=== PATIENT | female | born 1990 ===

== ENCOUNTER 2016-12-14 20:55 | Inpatient (IN) | payer BC, OTHER ==
[~2016-12-14] VITALS: Ht 175.3 cm; Wt 65.8 kg
[~2016-12-14 20:55] MED LIST: Baclofen PO; CHOL10002 PO; DICY20TA28 PO; Docusate Sodium PO; Gabapentin PO; HYDR-3895 PO; Ibuprofen PO
[2016-12-15] MEDS ORDERED: FLUT9.9S NS (01:30)
[2016-12-15 01:48] LABS: *URINE HCG, QUAL NEGATIVE (NEGATIVE)
[2016-12-15 01:50] VITALS: BP 121/85
[2016-12-15 01:50] LABS: *AMPHETAMINE, URINE POSITIVE (NEGATIVE); *BARBITURATE, URINE NEGATIVE (NEGATIVE); *CANNABINOID, URINE NEGATIVE (NEGATIVE); *COCCAINE, URINE NEGATIVE (NEGATIVE); *OPIATE, URINE POSITIVE (NEGATIVE); *PHENCYCLIDINE SCREEN,URINE NEGATIVE (NEGATIVE)
[2016-12-15] MEDS ORDERED: diphenhydrAMINE 50 MG CAPSULE PO PRN (02:00)
[2016-12-15] MEDS ORDERED: MIRALAX 17 GM POWD.PACK PO PRN (02:00)
[2016-12-15] MEDS ORDERED: DICYCLOMINE HCL 20 MG TABLET PO PRN (02:00)
[2016-12-15] MEDS ORDERED: MAGNESIUM HYDROXIDE 30 ML LIQUID UDC PO PRN (02:00)
[2016-12-15] MEDS ORDERED: ONDANSETRON 4 MG/2 ML VIAL IM PRN (02:00)
[2016-12-15] MEDS ORDERED: LOPERAMIDE HCL 2 MG CAPSULE PO PRN ×2 (02:00)
[2016-12-15] MEDS ORDERED: ONDANSETRON ODT 4 MG TAB.RAPDIS SL PRN (02:00)
[2016-12-15] MEDS ORDERED: MAG HYDROX/AL HYDROX/SIMETH 30 ML LIQUID UDC PO PRN (02:00)
[2016-12-15] MEDS ORDERED: BUPRENORPHINE HCL 2 MG TAB.SUBL SL PRN (02:00)
[2016-12-15] MEDS ORDERED: CLONIDINE HCL 0.1 MG TABLET PO PRN (02:00)
[2016-12-15] MEDS ORDERED: ACETAMINOPHEN 325 MG TABLET PO PRN (02:00)
[2016-12-15] MEDS: IBUPROFEN 400 MG TABLET PO PRN ×3 (02:04→21:52)
--- NOTE | 2016-12-15 02:05 | NUR ---
PRN Motrin administration Pt c/o headache upon admission. PRN Motrin administered
[2016-12-15] MEDS ORDERED: IBUPROFEN 400 MG TABLET ONE (02:11)
[2016-12-15] MEDS ORDERED: IBUP-23 PO (02:37)
[2016-12-15] MEDS ORDERED: [UNRECOGNIZED DRUG - CODE] PO (03:01)
--- NOTE | 2016-12-15 03:05 | NUR ---
PRN Motrin reassessment PRN Motrin effective. Pt reports relief of headache.
--- NOTE | 2016-12-15 03:30 | NUR ---
ADMISSION Pt is a 26 yo female [facility] on [facility]16. She is A&O x4 and ambulatory. Body check performed by HIDE AND SKIN PROCESSING WORKER and skin check performed by nurse. Allergic to sulfa, full code status, and on a regular diet. She does not appear intoxicated. She answers all questions appropriately but occasionally falls asleep between questions toward the end of assessment. Vitals signs are B/P 121/85, HR 82, RR 16, O2 sat 99%, T 97.7. She reports having a headache. She is 5'9" and weighs 145lb. Pt has a PMH of MRSA of a pimple on the chin in 2014, seizure in 2010 and 2012, scoliosis, eating disorder in high school, cosmetic surgery, anxiety, and depression. Lungs sounds clear, PERRLA, brisk capillary refill, abdomen soft and non-distended, bowel sounds present. She has track wilder on the front of her neck and a raised area on the inner right ankle which appears to be an insect bite. She has wilder on bilateral thighs from picking her skin while using drugs. Pt reports she may have recently had athletes foot. History of Use 1) Heroin IV 0.5 grams per day for the past 3 months. Last used 0.5 grams on 12/14/16 at 2100. She has used heroin for 11 years. 2) Methamphetamine IV 0.5 grams per day for the past 3 months. Last used 0.5 grams on 12/14/16 at 2100. She has used methamphetamine for 9 years. 3) GHB "1 dose" 2x/month. Last used 12/14/16. She has used GHB for 4 years. Treatment History [facility] 08/2016 for 2 months. [facility] 07/2016 Pt smokes 10 cigarettes per day. She came to treatment today because "I need to stop using heroin and meth". Symptoms when she doesn't use include "anxiety, stomach ache, chills, achy". COWS on admission is 1. UDS positive for opiates and methamphetamine. She does not have a primary care physician at home. Pt was oriented to the unit. She was educated regarding use of the call light and all questions answered. Fall and seizure precautions in place. Bed is down with call light in reach.
[2016-12-15 04:00] VITALS: BP 118/68
--- NOTE | 2016-12-15 07:16 | NUR ---
END OF SHIFT Report provided to day shift nurse. Pt is lying in bed resting. She is a 26 yo female admitted to [facility] early today for opiate dependence with a h/o using methamphetamine and GHB. Allergies to sulfa, full code, regular diet. Pt is A&O x4 and ambulatory. Last COWS was 1. She drank 295mL and slept for 4 hours. Addendum: 12/15/16 at 0716 by CALVIN WALSH RN PRN Motrin administered
[2016-12-15 07:49] LABS: BASOPHILS # (AUTO) 0.1 K/uL (0.0-8.0); EOSINOPHILS # (AUTO) 0.3 K/uL (0.0-0.7); EOSINOPHILS % (AUTO) 3.8 % (0.0-7.0); HEMATOCRIT 37.4 % (31.2-41.9); HEMOGLOBIN 12.3 g/dL (10.9-14.3); LYMPHOCYTES % (AUTO) 41.6 % (20.5-51.5); MEAN CORPUSCULAR HEMOGLOBIN 26.7 uug (24.7-32.8); MEAN CORPUSCULAR HGB CONC 33 g/dL (32.3-35.6); MEAN CORPUSCULAR VOLUME 80.9 fL (75.5-95.3); MONOCYTES # (AUTO) 0.6 K/uL (2.0-10.0); NEUTROPHILS # (AUTO) 3.1 K/uL (1.8-8.9); NEUTROPHILS % (AUTO) 45.6 % (38.5-71.5); PLATELET COUNT (AUTO) 227 K/uL (179-408); RED BLOOD CELL COUNT(AUTO) 4.62 MIL/uL (3.63-4.92); RED CELL DISTRIBUTION WIDTH 12.3 % (12.3-17.7); WHITE BLOOD COUNT (AUTO) 7.1 K/uL (3.8-11.8)
[2016-12-15 07:57] LABS: ETHANOL < 3 MG/DL (0-0)
[2016-12-15 07:59] LABS: ALANINE AMINOTRANSFERASE 19 U/L (14-59); ALBUMIN 3.1 g/dL (3.4-5.0); ALKALINE PHOSPHATASE 50 U/L (50-136); AMYLASE 29 U/L (25-115); ASPARTATE AMINOTRANSFERASE 19 U/L (15-37); BILIRUBIN,TOTAL 0.2 mg/dL (0.2-1.0); CALCIUM 8.6 mg/dL (8.5-10.1); CARBON DIOXIDE 32 mmol/L (21-32); CHLORIDE 102 mmol/L (98-107); CREATININE 0.9 mg/dL (0.6-1.3); GFR 75 mL/min (>60); GLUCOSE 86 mg/dL (74-106); LIPASE 193 U/L (73-393); POTASSIUM 4.5 mmol/L (3.5-5.1); SODIUM SERUM 137 mmol/L (136-145); TOTAL PROTEIN, SERUM 6.6 g/dL (6.4-8.2); UREA NITROGEN, BLOOD 16 mg/dL (7-18)
[2016-12-15 08:00] VITALS: BP 102/69
[2016-12-15 08:10] LABS: THYROID STIMULATING HORMONE 0.777 mIU/mL (0.358-3.740)
--- NOTE | 2016-12-15 08:15 | NUR ---
START OF SHIFT: RECEIVED PT LAYING IN BED ASLEEP. RESPIRATIONS EVEN AND UNLABORED. SHE IS EASILY AROUSED AND ASKED IF I COULD LET HER SLEEP. SHE REFUSED ASSESSMENT AND MORNING MEDS.COWS DEFERRED. BED LOCKED AND LOW. CALL BOLDEN IN REACH. WILL CONTINUE TO PROVIDE SAFE AND SUPPORTIVE ENVIRONMENT.
[2016-12-15 08:21] LABS: HIV-1 p24 ANTIGEN NON REACTIVE (NONREACTIVE); HIV-1/2 ANTIBODY NON REACTIVE (NONREACTIVE)
[2016-12-15] MEDS: MULTIVITAMINS,THERAPEUTIC TABLET PO SCH (09:00)
[2016-12-15 13:00] VITALS: BP 105/65
[2016-12-15] MEDS: METHOCARBAMOL 750 MG TABLET PO PRN ×2 (14:11→23:19)
[2016-12-15] MEDS: GABAPENTIN 300 MG CAPSULE PO SCH ×2 (14:12→21:52)
[2016-12-15] MEDS: HYDROXYZINE PAMOATE 25 MG CAPSULE PO PRN ×2 (14:12→21:52)
--- NOTE | 2016-12-15 14:16 | NUR ---
PT IS AWAKE AND C/O BODY ACHES,ANXIETY,RESTLESSNESS AND FATIGUE. PRN VISTARIL AND ROBAXIN GIVEN WITH SCHEDULED NEURONTIN. WILL MONITOR EFFECTIVENESS OF PRN MED.
--- NOTE | 2016-12-15 14:52 | NUR ---
PT STATES SHE FEELS LESS ANXIOUS AND HER BODY ACHES HAVE LESSENED. PRNS EFFECTIVE.
[2016-12-15 16:00] VITALS: BP 103/60
[2016-12-15] MEDS ORDERED: LORAZEPAM 2 MG/1 ML VIAL IM PRN (16:45)
--- NOTE | 2016-12-15 19:09 | NUR ---
324 END OF SHIFT: PT SPENT MOST OF SHIFT ASLEEP. AM MEDS HELD AND COWS DEFERRED. SHE AWOKE THIS AFTERNOON C/O ANXIETY AND BODY ACHES. PRN VISTARIL AND ROBAXIN GIVEN WITH 1300 SCHEDULED MEDS. SHE STATES THE PRNS WERE EFFECTIVE AND SHE FELT BETTER. PT CONTINUES TO SLEEP ON AND OFF DURING SHIFT. LAST COWS 6. PRN SUBUTEX AVAILABLE FOR COWS SCORE OF 12 OR MORE. ENCOURAGED INCREASED FLUIDS. SHE IS SNACKING ON SUGARY SNACKS. EDUCATED PT ON PROPER NUTRITION. PT EXPRESSED VERBAL UNDERSTANDING OF EDUCATION. WILL PASS SHIFT REPORT TO ONCOMING NURSE.BED LOCKED AND LOW. CALL BOLDEN IN REACH.
[2016-12-15 20:00] VITALS: BP 112/71
--- NOTE | 2016-12-15 20:00 | NUR ---
START OF SHIFT NOTE PATIENT IN BED. UPON GREETING PATIENT REPORTS ANXIETY, GENERALIZED BODY ACHES 6/10, SWEATING, STUFFY NOSE, NO N/V, SLIGHT ABDOMINAL CRAMPING. PATIENT ALERT AND ORIENTED X 3. RESPIRATION EVEN AND UNLABORED. RECEIVED REPORT FROM DAY SHIFT NURSE. PATIENT WAS GIVEN ROBAXIN AND VISTARIL DURING THE DAY. LAST COWS 6. PATIENT IN BED MOST OF THE DAY. PATIENT IS A 26 YEAR OLD FEMALE, ADMITTED FOR OPIATE DEPENDENCE. PATIENT IS NOT ON TAPER, PRN SUBUTEX AVAILABLE. PATIENT IS FULL CODE, REGULAR DIET AND ALLERGIC TO SULFA. ON FALL/SEIZURE PRECAUTION. PATIENT WITH RIGHT ANKLE INSECT BITE, TRACK FERNANDES ON NECK AND BILATERAL THIGH PICK FERNANDES. MRSA SWAB SENT TO LAB, WAITING FOR THE RESULT. SAFETY MEASURES IN PLACE. CALL LIGHT IN REACH. WILL CONTINUE TO MONITOR.
--- NOTE | 2016-12-15 21:52 | NUR ---
PRN BENADRYL/MOTRIN/VISTARIL PATIENT C/O ANXIETY, UNABLE TO SLEEP AND GENERALIZED BOY PAIN 02/07. PRN MOTRIN, BENADRYL AND VISTARIL. WILL MONITOR FOR EFFECTIVENESS
--- NOTE | 2016-12-15 22:52 | NUR ---
PRN VISTARIL/MOTRIN PATIENT STATE STILL ANXIOUS . PAIN DECREASED 2/10. RELAXATION TECHNIQUE PROVIDED. PATIENT STATES SHE WILL TRY TO GO TO SLEEP. WILL CONTINUE TO MONITOR
[2016-12-15] MEDS: BUPRENORPHINE HCL 2 MG TAB.SUBL SL PRN (23:19)
--- NOTE | 2016-12-15 23:19 | NUR ---
PRN ROBAXIN AND SUBUTEX ADMINISTRATION PATIENT REPORTS INCREASE ANXIETY, IRRITABILITY, SWEATING, GOOSE BUMPS, STUFFY NOSE, INABILITY TO STAY ASLEEP. CIWA 12. PRN ROBAXIN AND SUBUTEX GIVEN. WILL MONITOR FOR EFFECTIVENESS
--- NOTE | 2016-12-15 23:49 | NUR ---
PRN LENORAUTEX RE-ASSESSMENT PATIENT IN BED , SHE STATES HER ANXIETY SUBSIDED, SHE'S RELAXED NOW., MEDICATION IS WORKING AND WILL SOON GO TO SLEEP. CIWA 5. WILL CONTINUE TO MONITOR
[2016-12-16] VITALS: BP 119/72
--- NOTE | 2016-12-16 | NUR ---
PRN BENADRYL RE-ASSESSMENT PATIENT IN BED WITH EYES CLOSED. RESPIRATION EVEN AND UNLABORED. SAFETY MEASURES IN PLACE. CALL LIGHT IN REACH. WILL CONTINUE TO MONITOR.
--- NOTE | 2016-12-16 00:19 | NUR ---
NANETTE MURGUIA RE-ASSESSMENT PATIENT BED WITH EYES CLOSED. NO S/S OF DISTRESS. RESPIRATION EVEN AND UNLABORED. SAFETY MEASURES IN PLACE. CALL LIGHT IN REACH. WILL CONTINUE TO MONITOR
[2016-12-16 04:00] VITALS: BP 125/71
--- NOTE | 2016-12-16 07:15 | NUR ---
END OF SHIFT NOTE PATIENT REPORTS ANXIETY, GENERALIZED BODY ACHES 6/10, SWEATING, STUFFY NOSE, NO N/V, SLIGHT ABDOMINAL CRAMPING DURING SHIFT. PATIENT ALERT AND ORIENTED X 3. RESPIRATION EVEN AND UNLABORED. PATIENT WAS GIVEN BENADRYL, VISTARIL AND MOTRIN. PATIENT WAS GIVEN PRN SUBUTEX FOR COWS 12 AND ROBAXIN AT 2319 , VISTARIL INEFFECTIVE. COWS DOWN TO 5 AFTER SUBUTEX. PATIENT PARTICIPATED N ACTIVITIES. ENCOURAGE TO ATTEND GROUPS. PATIENT COMPLAINT WITH MEDICATIONS. SAFETY MEASURES IN PLACE. CALL LIGHT IN REACH. WILL CONTINUE TO MONITOR. SLEPT 7 HOURS. FLUID INTAKE 532 ML. VOIDED X 1. BM X 1.LAST COWS 3.
--- NOTE | 2016-12-16 07:23 | NUR ---
Start of Shift Notes: Received patient in the room. Alert and oriented x 4. Verbally responsive. Able to make her needs known. Respirations even and unlabored. No SOB noted. Skin warm and dry to touch. Abdomen soft and non-distended with (+) BS in all 4 quadrants. No complains of N/V/D or constipation noted. No complains of abdominal discomfort. Voids independently. Denies any complains of bladder pain. Ambulatory ad chanel with steady gait. Patient is a 26 year old female who was admitted on 12/14/2016 for opiate/methamphetamine and GHB dependence who was placed on PRN Subutex only at this time. Has past medical hx of MRSA on the chin, seizures, scoliosis, anxiety and depression. Allergic to SULFA. Full code. Regular diet. On fall and seizure precautions. Educated patient on her current plan of care for the day and her medication regimen. Encouraged oral fluid intake and encouraged group participation to learn new skills to prevent relapse. Will continue to monitor closely. Safety precautions in place.
[2016-12-16 08:00] VITALS: BP 127/76
[2016-12-16] MEDS ORDERED: TUBERCULIN,PURIF.PROT.DERIV. 5 TU/0.1 ML TEST ID ONE (09:00)
[2016-12-16] MEDS: GABAPENTIN 300 MG CAPSULE PO SCH ×3 (09:05→21:31)
[2016-12-16] MEDS: MULTIVITAMINS,THERAPEUTIC TABLET PO SCH (09:05)
[2016-12-16] MEDS: CHOLECALCIFEROL 1,000 UNIT TABLET PO SCH (09:05)
[2016-12-16] MEDS: HYDROXYZINE PAMOATE 25 MG CAPSULE PO PRN (09:06)
[2016-12-16] MEDS: BUPRENORPHINE HCL 2 MG TAB.SUBL SL PRN (09:06)
--- NOTE | 2016-12-16 09:06 | NUR ---
Subutex 4 mg SL/Clonidine 0.1mg/Vistaril 50 mg PO given: Patient's COWS 12 - presented with multiple yawning episodes, increased anxiety, chills, hot flashes, runny nose, agitation, restless legs, and bone/joint aches. Medicated patient with Subutex 4 mg SL, Clonidine 0.1mg PO and Vistaril 50 mg PO as ordered. Will monitor for effectiveness.
[2016-12-16] MEDS: METHOCARBAMOL 750 MG TABLET PO PRN (09:12)
--- NOTE | 2016-12-16 09:12 | NUR ---
Robaxin 750 mg PO given: Patient complained of 5/10 muscle aches and joint pain related to withdrawal symptoms. Medicated patient with Robaxin 750 mg PO as ordered after non-pharmacological interventions were ineffective.
--- NOTE | 2016-12-16 09:36 | NUR ---
Subutex 4 mg SL: Re-assessment COWS 4. PRN Subutex was effective in reducing patient's withdrawal symptoms, muscle aches, anxiety and chills.
--- NOTE | 2016-12-16 09:44 | NUR ---
TB test not administered: Patient refused TB test at this time despite explanation of benefits. aware. CXR ordered.
--- NOTE | 2016-12-16 10:06 | NUR ---
Re-assessment: Clonidine/Vistaril Per patient, Clonidine and Vistaril were effective in reducing anxiety, agitation, chills and hot flashes. COWS 4.
--- NOTE | 2016-12-16 10:12 | NUR ---
Re-assessment: Robaxin Per patient, PRN Robaxin was effective in reducing muscle aches and pains. PL 2.
[2016-12-16 12:00] VITALS: BP 125/74
[2016-12-16 12:14] LABS: HCV AB <0.1 s/co ratio (0.0-0.9); HEPATITIS B CORE AB, IgM Negative (Negative); HEPATITIS B SURFACE AG Negative (Negative)
[2016-12-16] MEDS: DOCUSATE SODIUM 250 MG CAPSULE PO SCH (12:20)
[2016-12-16] MEDS: DICYCLOMINE HCL 20 MG TABLET PO SCH ×2 (14:42→21:31)
[2016-12-16] MEDS: BUPRENORPHINE HCL 2 MG TAB.SUBL SL SCH ×2 (14:43→21:34)
[2016-12-16] MEDS: BACLOFEN 20 MG TABLET PO SCH ×2 (14:43→21:31)
[2016-12-16] MEDS: CLONIDINE HCL 0.1 MG TABLET PO SCH ×2 (14:43→21:31)
[2016-12-16 16:00] VITALS: BP 98/63
--- NOTE | 2016-12-16 19:09 | NUR ---
End of Shift Notes: Patient is a 26 year old female admitted for opiate dependence who was placed on PRN Subutex at this time. Prior to admission, patient was using 0.5grams of Heroin IV, 0.5 grams of Meth IV and GHB. VS monitored closely. No significant abnormalities noted. Withdrawal symptoms were closely monitored q 4 hours. Initial COWS 12, - presented with chills, hot flashes, anxiety, agitation, yawning, restless legs, and muscle aches and pains. Medicated patient with Clonidine, Vistaril, Subutex, Robaxin at 0912 with help. Last COWS 3. Unable to participate in group and therapy sessions despite encouragement. Requires reassurance and redirection for most of the shift. Oral fluids encouraged as tolerated. All needs met and attended. On fall and seizure precautions. Safety precautions in place. Will continue to monitor closely.
[2016-12-16 20:00] VITALS: BP 121/80
--- NOTE | 2016-12-16 20:00 | NUR ---
START OF SHIFT NOTE PATIENT ALERT AND ORIENTED X 4. RESPIRATION EVEN AND UNLABORED. PATIENT REPORTS ANXIETY, RUNNY NOSE, SWEATING, STOMACH CRAMPS , MILD JOINT ACHES. NO N/V. RECEIVED REPORT FROM DAY SHIFT NURSE. PATIENT WAS GIVEN PRN SUBUTEX , CLONIDINE, VISTARIL , ROBAXIN AND COLACE. PATIENT WAS SEEN BY DR. BROWN DURING THE DAY AND STARTED HER ON MODIFIED 2 DAY SUBUTEX TAPER. PATIENT IS FULL CODE, REGULAR DIET AND ALLERGIC TO SULFA. ON FALL/SEIZURE PRECAUTION. PATIENT WITH RIGHT ANKLE INSECT BITE, TRACK FERNANDES ON NECK AND BILATERAL THIGH PICK FERNANDES. ON FALL/SEIZURE PRECAUTION. SAFETY MEASURES IN PLACE. CALL LIGHT IN REACH. WILL CONTINUE TO MONITOR
--- NOTE | 2016-12-16 21:34 | NUR ---
PRN MOM ADMINISTRATION PATIENT C/O UNABLE TO PASS OLAYINKA. PATIENT WAS GIVEN MOM. ENCOURAGE FLUIDS. WILL MONITOR FOR EFFECTIVENESS.
[2016-12-17] VITALS: BP 107/59
[2016-12-17 04:00] VITALS: BP 100/62
--- NOTE | 2016-12-17 07:33 | NUR ---
END OF SHIFT NOTE PATIENT ALERT AND ORIENTED X 4. RESPIRATION EVEN AND UNLABORED. PATIENT REPORTS ANXIETY, RUNNY NOSE, SWEATING, STOMACH CRAMPS , MILD JOINT ACHES. NO N/V. PATIENT WAS SEEN BY DR. BROWN DURING THE DAY AND STARTED HER ON MODIFIED 2 DAY SUBUTEX TAPER. PATIENT WAS GIVEN PRN MOM DURING SHIFT, INEFFECTIVE. ENCOURAGE FLUIDS. PATIENT WITH RIGHT ANKLE INSECT BITE, TRACK FERNANDES ON NECK AND BILATERAL THIGH PICK FERNANDES. ON FALL/SEIZURE PRECAUTION. SAFETY MEASURES IN PLACE. CALL LIGHT IN REACH. WILL CONTINUE TO MONITOR. PATIENT SLEPT 6 HOURS. FLUID INTAKE 828 ML. VOIDED X 2. NO BM. LAST COWS 1.
--- NOTE | 2016-12-17 07:35 | NUR ---
Start of Shift Report from night nurse: Pt is a 26 y/o female here for Opiate dependence r/t Heroin 0.5g/d IV, Methamphetamine 0.5g/d IV and GHB 1 dose 2 times per month; Modified 2 day Subutex taper ordered. Pt is a full code, regular diet, allergic to sulfa, fall and seizure precautions ordered. HHx: MRSA on chin in 2014, Seizure in 2010 and 2012, eating d/o, anxiety and depression, multiple relapses. V/S stable. Skin is not intact with tracks on neck, scars from picking on skin on thighs and insect bite on right ankle. Night nurse recommended to f/u with pt's c/o constipations; PRN MOM given last night with scheduled Gi regimen. No new orders endorsed to me. Last COWS 1. Pt is asleep in room. Will cont. to monitor the pt.
[2016-12-17 08:00] VITALS: BP 99/63
[2016-12-17] MEDS: DOCUSATE SODIUM 250 MG CAPSULE PO SCH (09:00)
[2016-12-17] MEDS: CHOLECALCIFEROL 1,000 UNIT TABLET PO SCH (09:00)
[2016-12-17] MEDS ORDERED: BUPRENORPHINE HCL 2 MG TAB.SUBL SL SCH (09:00)
[2016-12-17] MEDS: GABAPENTIN 300 MG CAPSULE PO SCH ×2 (09:00→17:25)
[2016-12-17] MEDS: DICYCLOMINE HCL 20 MG TABLET PO SCH ×2 (09:00→17:25)
[2016-12-17] MEDS: CLONIDINE HCL 0.1 MG TABLET PO SCH ×2 (09:00→17:29)
[2016-12-17] MEDS: BACLOFEN 20 MG TABLET PO SCH ×2 (09:00→17:25)
[2016-12-17] MEDS: MULTIVITAMINS,THERAPEUTIC TABLET PO SCH (09:00)
--- NOTE | 2016-12-17 10:00 | NUR ---
Medication Non-Administration Pt is in bed asleep since 0800am so HELD 0900 medications of Subutex 2mg SL last dose, Gabapentin 600mg, Bentyl 20mg, Clonidine 0.1mg, Vit D 2000 Units, Colace 250mg, MV, Thiamine & Folic Acid; I notified Dr. Stephenson and he is aware with no new orders noted. Will cont. to monitor the pt.
[2016-12-17 12:00] VITALS: BP 106/63
[2016-12-17 16:00] VITALS: BP 120/74
[2016-12-17 17:29] VITALS: BP 120/74
--- NOTE | 2016-12-17 18:15 | NUR ---
New Orders New Orders for Dulcolax 10mg PO PRN daily and 10mg Supp PRN daily.
[2016-12-17] MEDS ORDERED: BISACODYL 10 MG SUPP.RECT RC PRN (18:30)
[2016-12-17] MEDS ORDERED: BISACODYL 5 MG TABLET.DR PO PRN (18:30)
--- NOTE | 2016-12-17 18:45 | NUR ---
End of the Shift Report to t night nurse: Pt is a 26 y/o female here for Opiate dependence r/t Heroin 0.5g/d IV, Methamphetamine 0.5g/d IV and GHB 1 dose 2 times per month; Modified 2 day Subutex taper with last dose ordered at 09am missed with all scheduled meds missed at that time with Dr. Stephenson notified that after x3 attempts to give ordered meds pt remained asleep until lunch; no new orders from MD. Pt is a full code, regular diet, allergic to sulfa, fall and seizure precautions ordered. HHx: MRSA on chin in 2014, Seizure in 2010 and 2012, eating d/o, anxiety and depression, multiple relapses. Skin is not intact with tracks on neck, scars from picking on skin on thighs and insect bite on right ankle. Pt denies chest pain and no SOB noted. V/S stable yet HR 105 with irritability. No hallucinations, delusions or suicidal ideations noted. Pt did not attend group activities or therapy during my shift and remained to self in room very depressed and states that she wants her parents removed from consent so notified caser. New orders for Dulcolax tab 10mg PRN daily and Dulcolax supp 10mg PRN daily. PT THREATENS TO GO AMA; DR. STEPHENSON notified and will reassess the pt. Last COWS 5
--- NOTE | 2016-12-17 19:15 | NUR ---
Start of Shift Note: Report received from day shift nurse. Pt is a 26 yo female admitted on 12/14/16 for medically-supervised withdrawal from opiates. Pt reports using 0.5gm IV heroin daily for 3 months; pt also reports using 0.5gm IV methamphetamine daily for 3 months. Pt was on modified 2-day Subutex taper, with last dose at 09:00 held for sleep. Last day shift COWS=5. Pt reports allergy to sulfa. Pt is on a regular diet. Pt reports med hx: MRSA hx, seizure, scoliosis, eating DO, cosmetic surgery, anxiety, and depression. Day shift nurse reports pt became agitated after phone call to parents and then decided she wanted to leave AMA. Pt is currently speaking with Dr Stephenson and client administrator. Will continue to monitor.
--- NOTE | 2016-12-17 19:26 | NUR ---
AMA Note: Pt states that she wants to leave AMA d/t wanting "to go use". Pt educated about the risks and consequences of leaving AMA; pt verbalized understanding but still requested to leave. Multiple staff members spoke to pt without any success. VS WNL, pt denies suicidal/homicidal ideations, Dr Stephenson is aware. Pt was given a list of community resources in case she is in need of help. All belongings returned to pt. Pt left the facility on 12/17/2016 at 19:26.
== END 2016-12-17 19:26 | disposition left against medical advice (07) | DRG 894 ==
LOC: SRC 23:55
PROVIDERS: ADMIT Internal Medicine; ATTEND Internal Medicine
PROC: HZ2ZZZZ Detoxification Services for Substance Abuse Treatment (ICD-10-PCS; principal; 2016-12-14)
PROC: HZ31ZZZ Individual Counseling for Substance Abuse Treatment, Behavioral (ICD-10-PCS; 2016-12-15)
DX: F11.23 Opioid dependence with withdrawal (principal); E55.9 Vitamin D deficiency, unspecified; Z59.1 Inadequate housing; F41.1 Generalized anxiety disorder; F17.210 Nicotine dependence, cigarettes, uncomplicated; F32.9 Major depressive disorder, single episode, unspecified; F15.23 Other stimulant dependence with withdrawal; Z83.3 Family history of diabetes mellitus; Z86.59 Personal history of other mental and behavioral disorders; F14.90 Cocaine use, unspecified, uncomplicated; K59.09 Other constipation
CPT/HCPCS: 36415; 71010; 80307; 80324; 80361; 83690; 83735; 84443; 84703; 85025; 86580; 86592; 86705; 86803; 87340; 87806; A4663; G6040-TC; Q0163

== ENCOUNTER 2017-02-26 00:24 | Inpatient (IN) | payer BC, OTHER ==
[~2017-02-26] VITALS: Ht 175.3 cm; Wt 61.2 kg
[~2017-02-26 00:24] MED LIST changes: -Baclofen PO; +IBUP-23 PO
--- NOTE | 2017-02-26 01:00 | NUR ---
Pre-Admission Assessment Pt seen in intake office. Pt noted to be moderately intoxicated but in stable condition. Policies on medication disposal explained to and understood by patient. V/S WNL. Pt is A+Ox3 and cooperative. Will admit to unit.
--- NOTE | 2017-02-26 01:30 | NUR ---
ADMISSION NOTE : Pt is a 26 yo female who arrived [facility] the [facility] at 01:10 on 02/26/17. She is A&O x4 and ambulatory. Body check performed by MOLECULAR SPECTROSCOPIST and skin check performed by RACHEL Valenzuela . Allergic to sulfa, full code status, and on a regular diet. She does not have a primary care physician at home.She does appear very intoxicated. She answers all questions slowly but occasionally falls asleep between questions toward the end of assessment. She came to treatment today because "I need to stop using heroin and meth". Symptoms when she doesn't use include "anxiety, stomach ache, chills, achy". Pt has a PMH of MRSA of a pimple on the chin in 2014, seizure in 2010 and 2012, scoliosis, eating disorder in high school, cosmetic surgery, anxiety, and depression. Upon Admission Vital signs are B/P=108/70, DO=236, RR 16, O2 sat 98%, T 97.7. COWS=5 . She reports having a headache. She is 5'9" and weighs 135lb. Lungs sounds clear, PERRLA, brisk capillary refill, abdomen soft and non-distended, bowel sounds present. She has track wilder on the front of her neck and a raised area on the inner right ankle which appears to be an insect bite. She has wilder on bilateral thighs from picking her skin while using drugs. Last BM was on 02/25/2017. Pt was oriented to the unit. She was educated regarding use of the call light and all questions answered. Pt. was able to provide UDS , sample sent to the lab. Safety measures in place : bed on lowest position with side rails x2 up for safety, call light within reach. Will continue to monitor closely and offer help. History of Use 1) Heroin IV 0.5 grams per day for the past 5 months. Last used 0.5 grams on 02/25/17 at 1400. She has used heroin for 11 years. 2) Methamphetamine IV 0.5 grams per day for the past 5 months. Last used 0.5 grams on 02/25/17 at 1400. She has used methamphetamine for 9 years. PAST MEDICAL HISTORY : Scoliosis, eating disorder in high school, cosmetic surgery, anxiety and depression. Tx HISTORY : X8 DETOXs. X8 REHABs. [facility] 08/2016 for 2 months. [facility] 07/2016 , 11/2016 FAMILY HISTORY : Mother diagnosed with depression, father diagnosed with HTN, elev. Chol ., LB pain., sister is in good health.
[2017-02-26 02:11] LABS: *URINE HCG, QUAL NEGATIVE (NEGATIVE)
[2017-02-26 02:17] LABS: *AMPHETAMINE, URINE POSITIVE (NEGATIVE); *BARBITURATE, URINE NEGATIVE (NEGATIVE); *CANNABINOID, URINE NEGATIVE (NEGATIVE); *COCCAINE, URINE POSITIVE (NEGATIVE); *OPIATE, URINE POSITIVE (NEGATIVE); *PHENCYCLIDINE SCREEN,URINE NEGATIVE (NEGATIVE)
[2017-02-26] MEDS ORDERED: LOPERAMIDE HCL 2 MG CAPSULE PO PRN ×2 (02:30)
[2017-02-26] MEDS ORDERED: ONDANSETRON ODT 4 MG TAB.RAPDIS SL PRN (02:30)
[2017-02-26] MEDS ORDERED: DICYCLOMINE HCL 20 MG TABLET PO PRN (02:30)
[2017-02-26] MEDS ORDERED: MIRALAX 17 GM POWD.PACK PO PRN (02:30)
[2017-02-26] MEDS ORDERED: HYDROXYZINE PAMOATE 25 MG CAPSULE PO PRN ×2 (02:30→14:45)
[2017-02-26] MEDS ORDERED: BUPRENORPHINE HCL 2 MG TAB.SUBL SL PRN (02:30)
[2017-02-26] MEDS ORDERED: MAGNESIUM HYDROXIDE 30 ML LIQUID UDC PO PRN (02:30)
[2017-02-26] MEDS ORDERED: IBUPROFEN 400 MG TABLET PO PRN (02:30)
[2017-02-26] MEDS ORDERED: ONDANSETRON 4 MG/2 ML VIAL IM PRN (02:30)
[2017-02-26] MEDS ORDERED: MAG HYDROX/AL HYDROX/SIMETH 30 ML LIQUID UDC PO PRN (02:30)
[2017-02-26 04:00] VITALS: BP 104/66
--- NOTE | 2017-02-26 06:28 | NUR ---
PRN SUBUTEX Pt. complains of flashes, body ache, muscle spasm, GE=331, COWS=12. PRN Subutex 4mg given as ordered. Safety measures in place : bed on lowest position with side rails x2 up for safety, call light within reach. Will continue to monitor closely and offer help
[2017-02-26] MEDS ORDERED: BUPRENORPHINE HCL 2 MG TAB.SUBL SL ONE (06:38)
--- NOTE | 2017-02-26 06:48 | NUR ---
END SHIFT NOTE : Pt is a 26 yo female who arrived on the [facility] at 01:10 on 02/26/17 for HEROIN and METH. dependence. Allergic to sulfa, full code status, and on a regular diet. She does not have a primary care physician at home. Pt has a PMH of MRSA of a pimple on the chin in 2014, seizure in 2010 and 2012, scoliosis, eating disorder in high school, cosmetic surgery, anxiety, and depression. She has track wilder on the front of her neck and a raised area on the inner right ankle which appears to be an insect bite. She has wilder on bilateral thighs from picking her skin while using drugs. Last BM was on 02/25/2017. Pt. was able to provide UDS , sample sent to the lab. Pt remains compliant with the treatment plan. PRN SUBUTEX 4mg given during my shift. V/S remain WNL. RR=16, even and unlabored, lungs clear upon auscultation, abdomen soft and non- distended. Pt denies nausea, vomiting and diarrhea. COWS=12 at 0630 , GQNLLL=008 ml, voided x 1, slept 4 hours. Safety measures in place : bed on lowest position with side rails x2 up for safety, call light within reach. Will continue to monitor closely and offer help.
--- NOTE | 2017-02-26 07:30 | NUR ---
START OF SHIFT Pt 26 y/o female admitted for opiate / methamphetamine dependence. Pt received in room on bed with eyes closed resting, but easily arousable to name. Pt alert and oriented to name, place, and time. Perrla. Skin warm and slightly moist to touch. Respirations even and unlabored. It was reported that pt slept for 4.5 hours last night. Bed on lowest position with side rails x2 up for safety. Call light within reach. No distress noted at this time.
--- NOTE | 2017-02-26 07:30 | NUR ---
PRN EVAL Pt with cows=3.
[2017-02-26 08:03] VITALS: BP 118/79
[2017-02-26] MEDS ORDERED: DOCUSATE SODIUM 250 MG CAPSULE PO PRN (08:45)
[2017-02-26] MEDS ORDERED: TUBERCULIN,PURIF.PROT.DERIV. 5 TU/0.1 ML TEST ID ONE (09:00)
[2017-02-26] MEDS: CLONIDINE HCL 0.1 MG TABLET PO PRN (09:02)
[2017-02-26] MEDS: GABAPENTIN 300 MG CAPSULE PO SCH ×3 (09:02→21:16)
[2017-02-26] MEDS: CHOLECALCIFEROL 1,000 UNIT TABLET PO SCH (09:02)
--- NOTE | 2017-02-26 09:02 | NUR ---
PRN Pt states feels anxious and restless. Catapres po prn per MD order given and tolerated well.
--- NOTE | 2017-02-26 09:02 | NUR ---
PRN Pt states has generalized pain aches 7/10. Robaxin po prn per MD order given and tolerated well.
[2017-02-26] MEDS: BUPRENORPHINE HCL 2 MG TAB.SUBL SL SCH ×3 (09:03→21:20)
[2017-02-26] MEDS: METHOCARBAMOL 750 MG TABLET PO PRN ×2 (09:03→21:16)
[2017-02-26] MEDS: MULTIVITAMINS,THERAPEUTIC TABLET PO SCH (09:03)
--- NOTE | 2017-02-26 10:02 | NUR ---
PRN EVAL Pt observed in bed with eyes closed resting, but easily arousable to name.
--- NOTE | 2017-02-26 10:02 | NUR ---
PRN EVAL Pt states pain level 2/10.
[2017-02-26 12:52] VITALS: BP 101/63
[2017-02-26] MEDS ORDERED: BENZOCAINE ORAL CARE 12 ML BOTTLE MM PRN (14:00)
[2017-02-26] MEDS: CLINDAMYCIN HCL 300 MG CAPSULE PO SCH ×2 (17:59→23:55)
[2017-02-26 18:08] VITALS: BP 110/72
--- NOTE | 2017-02-26 18:10 | NUR ---
END OF SHIFT Pt 26 y/o female admitted for opioid dependence. Pt alert and oriented to name, place, and time. Perrla. Skin warm and slightly moist to touch. Respirations even and unlabored. Bilateral hand tremors noted. Pt isolative to room for the whole day. Pt did not attend group activity. Pt appeared with no motivation for self care. Pt medication compliant and tolerated well . No ASE noted. Bed on lowest position with side rails x2 up for safety. Call light within reach. No distress noted at this time. Addendum: 02/26/17 at 1821 by BAO RASHEED RN correction. Pt admitted for opiate methamphetamine dependence.
[2017-02-26 20:00] VITALS: BP 115/76
--- NOTE | 2017-02-26 20:00 | NUR ---
START OF SHIFT NOTE PATIENT IN HER ROOM RESTING. PATIENT STATES HER BODY IS ACHY 4/10, STUFFY NOSE, ANXIOUS AND SWEATING. RECEIVED REPORT FROM DAY SHIFT NURSE. PATIENT IS A 26 YEAR OLD FEMALE , ADMITTED FOR OPIATE/METH DEPENDENCE. PATIENT IS ON 4 DAYS SUBUTEX TAPER, STARTED TODAY. PATIENT IS FULL CODE, REGULAR DIET AND ALLERGIC TO SULFA AND SULFITE. UPON ADMISSION,PATIENT REPORTS USING HEROIN 0.5 GRAM IV SINCE 2017 AND METH 0.5 GRAM IV SINCE 2016. PATIENT REPORTS PMH OF DEPRESSION AND SEIZURE 2010 AND 2012. PATIENT ON CLINDAMYCIN ANTIBIOTIC DUE TO PICK FERNANDES ON BODY. PATIENT WAS GIVEN PRN CATAPRES AND ROBAXIN . VS STABLE. PATIENT DID NOT ATTEND GROUPS. ON FALL/SEIZURE PRECAUTION. PATIENT C/O SHARP PAIN WHEN TAKING A DEEP BREATH. NO SHORTNESS OF BREATH NOTED. PATIENT VS BP- 115/75 P-111 T-98.0 R-20 PA-4/10 AND SpO2 - 92-93% IN RA. LUNGS CLEAR AND RESPIRATION EVEN AND UNLABORED. WILL NOTIFY DR. BROWN REGARDING PATIENTS CONCERN
--- NOTE | 2017-02-26 20:49 | NUR ---
ORDERS DR. BROWN MADE NEW ORDER FOR CHEST X-RAY, LABS AND EKG
--- NOTE | 2017-02-26 21:16 | NUR ---
PRN ROBAXIN ADMINISTRATION PATIENT C/O MUSCLE ACHES 12/08. PRN ROBAXIN GIVEN. WILL MONITOR FOR EFFECTIVENESS
[2017-02-26 21:19] LABS: ETHANOL < 3 MG/DL (0-0)
[2017-02-26 21:23] LABS: ALANINE AMINOTRANSFERASE 49 U/L (14-59); ALKALINE PHOSPHATASE 121 U/L (50-136); AMYLASE 39 U/L (25-115); ASPARTATE AMINOTRANSFERASE 51 U/L (15-37); BILIRUBIN,TOTAL 0.4 mg/dL (0.2-1.0); CARBON DIOXIDE 30 mmol/L (21-32); CHLORIDE 99 mmol/L (98-107); CREATININE 1.1 mg/dL (0.6-1.3); GLUCOSE 102 mg/dL (74-106); LIPASE 251 U/L (73-393); MAGNESIUM 1.7 mg/dL (1.8-2.4); POTASSIUM 4.4 mmol/L (3.5-5.1); TOTAL PROTEIN, SERUM 6.7 g/dL (6.4-8.2); UREA NITROGEN, BLOOD 10 mg/dL (7-18)
[2017-02-26] MEDS: LACTOBACILLUS RHAMNOSUS GG 1 EACH CAPSULE PO SCH (21:37)
[2017-02-26] MEDS ORDERED: MAGNESIUM OXIDE 400 MG TABLET PO ONE ×2 (21:45→22:00)
--- NOTE | 2017-02-26 21:50 | NUR ---
MAGNESIUM REPLACED PATIENT'S MAGNESIUM LEVEL 1.7. MAGNESIUM REPLACED WITH MAGNESIUM OXIDE.
--- NOTE | 2017-02-26 21:52 | NUR ---
NEW ORDER DR. BROWN MADE NEW ORDER FOR PATIENT TO HAVE CT ANGIOGRAM
--- NOTE | 2017-02-26 21:52 | NUR ---
MD ORDER /O2 THERAPY PATIENT IS ON O2 AT 2L VIA NASAL CANNULA. WILL CONTINUE TO MONITOR
[2017-02-26 21:55] LABS: THYROID STIMULATING HORMONE 0.816 mIU/mL (0.358-3.740)
--- NOTE | 2017-02-26 21:58 | NUR ---
NEW ORDER/LOVENOX NEW ORDER OF LOVENOX GIVEN ON LEFT UPPER ABDOMEN SQ PER DR. BROWN. WILL CONTINUE TO MONITOR
[2017-02-26] MEDS ORDERED: MAGNESIUM OXIDE 400 MG TABLET ONE (21:59)
[2017-02-26] MEDS ORDERED: ENOXAPARIN SODIUM 40 MG/0.4 ML DISP.SYRIN SQ SCH (22:00)
--- NOTE | 2017-02-26 22:16 | NUR ---
NANETTE MURGUIA RE-ASSESSMENT PATIENT STATES ROBAXIN IS HELPFUL. PER PATIENT SHE HAS NO PAIN AT THIS TIME. WILL CONTINUE TO MONITOR
[2017-02-26] MEDS ORDERED: ENOXAPARIN SODIUM 40 MG/0.4 ML DISP.SYRIN SQ ONE (22:27)
[2017-02-26 22:41] LABS: BASOPHILS % (AUTO) 0.5 % (0.0-2.0); EOSINOPHILS # (AUTO) 0.1 K/uL (0.0-0.7); EOSINOPHILS % (AUTO) 1.4 % (0.0-7.0); LYMPHOCYTES # (AUTO) 2.3 K/UL (0.8-4.8); LYMPHOCYTES % (AUTO) 30.8 % (20.5-51.5); MEAN CORPUSCULAR HEMOGLOBIN 23.8 UUG (27.0-31.0); MEAN CORPUSCULAR HGB CONC 32 g/dL (32.0-37.0); MEAN CORPUSCULAR VOLUME 75.6 FL (81.0-99.0); MONOCYTES % (AUTO) 9.4 % (0.0-11.0); NEUTROPHILS % (AUTO) 57.9 % (38.5-71.5)
[2017-02-26 23:07] LABS: WHITE BLOOD COUNT (AUTO) 8.4 K/UL (4.0-11.2)
[2017-02-26 23:09] LABS: HEMATOCRIT 36.3 % (37-47); HEMOGLOBIN 11.4 G/DL (12.0-16.0)
[2017-02-26 23:11] LABS: NEUTROPHILS # (AUTO) 4.9 K/UL (1.8-8.9); PLATELET COUNT (AUTO) 164 K/UL (150-450)
[2017-02-26 23:12] LABS: MONOCYTES # (AUTO) 0.6 K/UL (0.1-1.30)
[2017-02-27] VITALS (8 sets, daily range): BP systolic 86–114; BP diastolic 52–68
[2017-02-27] MEDS: IBUPROFEN 600 MG TABLET PO PRN (05:06)
[2017-02-27] MEDS: CLINDAMYCIN HCL 300 MG CAPSULE PO SCH ×3 (05:06→17:09)
--- NOTE | 2017-02-27 05:06 | NUR ---
PRN MOTRIN ADMINISTRATION PATIENT C/O BACK PAIN, RADIATING TO HER SHOULDER BLADES 12/08. PRN MOTRIN GIVEN. WILL MONITOR FOR EFFECTIVENESS
--- NOTE | 2017-02-27 06:06 | NUR ---
PRN MOTRIN RE-ASSESSMENT PATIENT STATES MOTRIN IS HELPFUL. PAIN LEVEL 1/10 AT THIS TIME. WILL CONTINUE TO MONITOR.
[2017-02-27] MEDS ORDERED: IOHEXOL 350 100 ML INFUS..BTL ONE (06:39)
[2017-02-27] MEDS ORDERED: IV NORMAL SALINE 250 ML IV ONE (06:39)
--- NOTE | 2017-02-27 07:21 | NUR ---
END OF SHIFT NOTE MONITORED PATIENT THROUGHOUT THE SHIFT. PATIENT C/O SHARP PAIN WHEN TAKING A DEEP BREATH BEGINNING OF SHIFT. DR. BROWN WAS NOTIFIED AND MADE AN ORDER FOR EKG, CHEST X-RAY ,LABS , O2 THERAPY AND CT ANGIOGRAM. EXPLAINED TO PATIENT ALL PROCEDURES. PATIENT PATIENT IS A 26 YEAR OLD FEMALE , ADMITTED FOR OPIATE/METH DEPENDENCE. PATIENT IS ON 4 DAYS SUBUTEX TAPER, STARTED TODAY. PATIENT IS FULL CODE, REGULAR DIET AND ALLERGIC TO SULFA AND SULFITE. UPON ADMISSION,PATIENT REPORTS USING HEROIN 0.5 GRAM IV SINCE 2017 AND METH 0.5 GRAM IV SINCE 2017. PATIENT REPORTS PMH OF DEPRESSION AND SEIZURE 2010 AND 2012. PATIENT ON CLINDAMYCIN ANTIBIOTIC DUE TO PICK FERNANDES ON BODY, NO ADVERSE REACTION . PATIENT WAS GIVEN PRN ROBAXIN AT 2116 AND MOTRIN AT 0506. MAGNESIUM 1.7 -WAS REPLACED. PATIENT ON O2 AT 3L/MIN . NO SHORTNESS OF BREATH. LUNGS CLEAR AND RESPIRATION EVEN AND UNLABORED. VS STABLE. ON FALL/SEIZURE PRECAUTION. PATIENT COMPLIANT WITH MEDICATIONS. IN HER ROOM MOST OF THE SHIFT. LAST COWS 2. SAFETY MEASURES IN PLACE. CALL LIGHT IN REACH. WILL CONTINUE TO MONITOR. SLEPT 9 HOURS. FLUID INTAKE 1,118. VOIDED X 1. NO BM. ENDORSED TO NEXT SHIFT, C-T ANGIOGRAM DONE. WAITING FOR RESULT.
--- NOTE | 2017-02-27 08:00 | NUR ---
START OF SHIFT Pt 26 y/o female admitted for opiate methamphetamine dependence. Pt received in room on bed with eyes closed resting, but easily arousable to name. Pt alert and oriented to name, place, and time. Perrla. Skin warm and slightly moist to touch. Pt with O2=2L via NC and appears to be tolerating well. It was reported that pt slept for 9 hours last night. Bed on lowest position with side rails x2 up for safety. Call light within reach. No distress noted at this time.
[2017-02-27] MEDS ORDERED: BUPRENORPHINE HCL 2 MG TAB.SUBL SL SCH ×2 (09:00→11:00)
[2017-02-27] MEDS: MULTIVITAMINS,THERAPEUTIC TABLET PO SCH (09:33)
[2017-02-27] MEDS: LACTOBACILLUS RHAMNOSUS GG 1 EACH CAPSULE PO SCH ×2 (09:33→21:28)
[2017-02-27] MEDS: GABAPENTIN 300 MG CAPSULE PO SCH ×3 (09:33→21:28)
[2017-02-27] MEDS: CHOLECALCIFEROL 1,000 UNIT TABLET PO SCH (09:33)
--- NOTE | 2017-02-27 11:09 | NUR ---
Therapist prompted client about group times. Client will not be attending today because she is bedridden at this time.
--- NOTE | 2017-02-27 14:25 | NUR ---
WOUND CARE CONSULT: PT EATING LUNCH AND DENIES ANY OPEN WOUNDS. WILL SEE PRN.
[2017-02-27] MEDS: BUPRENORPHINE HCL 2 MG TAB.SUBL SL SCH ×2 (15:04→21:29)
--- NOTE | 2017-02-27 18:13 | NUR ---
MD communication Dr Stephenson notified of Ultrasound results of: IMPRESSION: No evidence of a deep vein thrombosis within the bilateral lower extremities. NNO.
--- NOTE | 2017-02-27 18:44 | NUR ---
START OF SHIFT NOTE: Patient endorsed by day shift nurse. Report received. Patient is a 25 years old female admitted to [facility] on 02/26/17 under the care of Dr. Stephenson for opiate and methamphetamine dependence, placed on 5 day Subutex taper since 02/26/17. Patient tolerated well. Patient reports allergies to SULFA, is on Regular diet, is on Full Code, placed on Fall and Seizure Precautions. Past Medical History: Seizures History (2010, 2012), anxiety and depression disorders, substance abuse, tobacco dependence. History of Substance Use: Heroin IV "0.5 grams every day since 2016. Last used 0.5 grams 02/25/17". She has used "heroin for 11 years". Methamphetamine IV "0.5 grams every day since 2016. Last used 0.5 grams on 02/25/17". She has used methamphetamine for 9 years. Patient smokes "10 cigarettes every day". Treatment History: "[facility] 08/[address] for [address] [facility] 11/2016, 07/2016". Upon endorsement patient has no distress. COWS: 7: c/o anxiety/nervousness; sweating, and restlessness. Pupil Size larger than normal for room light; Patient denies suicidal and homicidal ideation. VS WNL. Breathing are even and unlabored, all lung sounds clear bilaterally. Bowel Sounds active in all 4 quadrants. Last BM was "02/28/2016 in the morning". Skin is intact, warm and dry to touch. Patient's saline lock peripheral IV 20g in place patent, no redness noted. Patient is receiving O2=2L via NC as ordered, and is tolerating well. Encouraged fluids as tolerated. Encouraged to participated in groups activities. Patient remains compliant with treatment, medications, and diet regime. Safety measures on place. Call light within reach, bed in lowest position and locked, added rails up bilaterally rails up bilaterally. Will continue to monitor closely. Addendum: 02/27/17 at 2043 by LEOPOLDO HORTA RN Patient is a 26 years old female
--- NOTE | 2017-02-27 18:44 | NUR ---
END OF SHIFT Pt 26 y/o female admitted for opiate and methamphetamine dependence. Pt alert and oriented to name, place, and time. Perrla. Skin warm and slightly moist to touch. Respirations even and unlabored. Bilateral hand tremors noted. Pt with saline lock peripheral IV 20g in place, and patent with no redness noted. Pt also receiving O2=2L via NC and is tolerating well. Pt isolative to room for the whole day. Pt did not attend group activity. Pt appeared with no motivation for self care. Pt medication compliant and tolerated well . No ASE noted. Bed on lowest position with side rails x2 up for safety. Call light within reach. No distress noted at this time.
--- NOTE | 2017-02-27 18:56 | NUR ---
prn Pt with no bm noted today. MOM po prn per MD order given and tolerated well.
[2017-02-28] VITALS (7 sets, daily range): BP systolic 84–103; BP diastolic 47–63
[2017-02-28] MEDS: CLINDAMYCIN HCL 300 MG CAPSULE PO SCH ×4 (00:09→17:58)
[2017-02-28 06:06] LABS: HEPATITIS B SURFACE AG Negative (Negative)
--- NOTE | 2017-02-28 07:21 | NUR ---
END OF SHIFT NOTE: Patient endorsed to day shift nurse in stable condition. Report given. Patient is a 26 years old female admitted to [facility] on 02/26/17 under the care of Dr. Stephenson for opiate and methamphetamine dependence, continue 5 day Subutex taper since 02/26/17. Patient tolerated well. Patient reports allergies to Sulfa (Sulfonamide Antibiotics), sulfite, is on Regular diet, is on Full Code, is on Fall and Seizure Precautions. Past Medical History: Seizures History (2010, 2012), anxiety, depression, and substance abuse. History of Substance Use: Heroin IV "0.5 grams every day since 2016". Last used "0.5 grams 02/25/17". She has used "heroin for 11 years". Methamphetamine IV "0.5 grams every day since 2016". Last used 0.5 grams on 02/25/17". She has used "methamphetamine for 9 years". Patient smokes "10 cigarettes every day". Treatment History: "[facility] 08/2016 for 2 months. [facility] 11/2016 and 07/2016". Last COWS decreased from 6 to 5. Patient presented with anxiety, nervousness, tachycardia, tremors that can be felt, sweating, restlessness, pupil size larger than normal for room light. Patient denies suicidal and homicidal ideation. VS at 04:00: T: 97.9; BP: 96/57, HR: 101; O2Sat: 96% via NC as ordered, RR: 18, pain level: "0/10". Respirations are even and unlabored. Skin is intact, warm and dry to touch. Patient's saline lock peripheral IV 20g in place patent, no redness noted. Patient is receiving O2=2L via NC as ordered, and is tolerating well. Encouraged fluids as tolerated. Patient remains compliant with treatment, medications, and diet regime. Patient slept 10 hours, Intake 1,146 ml, Voided x2. Safety measures on place. Call light within reach, bed in lowest position and locked, padded rails up bilaterally rails up bilaterally.
--- NOTE | 2017-02-28 08:00 | NUR ---
START OF SHIFT Pt 26 y/o female admitted for opiate methamphetamine dependence. Pt received in room on bed with eyes closed resting, but easily arousable to name. Pt alert and oriented to name, place, and time. Perrla. Skin warm and slightly moist to touch. Pt with O2=2L via NC and appears to be tolerating well. Peripheral IV 22g on righ khanna intact and in place, and is patent with no redness noted. It was reported that pt slept for 10 hours last night. Bed on lowest position with side rails x2 up for safety. Call light within reach. No distress noted at this time.
--- NOTE | 2017-02-28 08:09 | NUR ---
PRN pt with c/o tooth pain 02/07. Anbesol prn per MD order given and tolerated well.
[2017-02-28] MEDS: MULTIVITAMINS,THERAPEUTIC TABLET PO SCH (09:04)
[2017-02-28] MEDS: GABAPENTIN 300 MG CAPSULE PO SCH ×3 (09:04→20:08)
[2017-02-28] MEDS: LACTOBACILLUS RHAMNOSUS GG 1 EACH CAPSULE PO SCH ×2 (09:04→20:08)
[2017-02-28] MEDS: BUPRENORPHINE HCL 2 MG TAB.SUBL SL SCH ×3 (09:05→20:10)
[2017-02-28] MEDS: CHOLECALCIFEROL 1,000 UNIT TABLET PO SCH (09:05)
--- NOTE | 2017-02-28 09:09 | NUR ---
PRN JONI Pt states still has tooth pain.
[2017-02-28] MEDS: IBUPROFEN 600 MG TABLET PO PRN (09:22)
--- NOTE | 2017-02-28 09:24 | NUR ---
PRN Pt with c/o tooth pain 02/07. Motrin po prn per MD order given and tolerated well.
--- NOTE | 2017-02-28 10:13 | NUR ---
ENDORSEMENT Endrosed pt to nurse. VS wnl. No distress noted.
--- NOTE | 2017-02-28 10:15 | NUR ---
Assumed care for patient at 1015. All information discussed about patient. will continue with patient care.
[2017-02-28] MEDS ORDERED: KETOROLAC TROMETHAMINE 30 MG INJ IM PRN (11:45)
--- NOTE | 2017-02-28 15:10 | NUR ---
HELD SUBUTEX Patient scheduled for Subutex at 1500. Assessed patient and she is too sedated for scheduled dose. Unable to keep eyes open. Last COWS 4. Will monitor patient closely.
--- NOTE | 2017-02-28 16:56 | NUR ---
Therapist prompted client to attend daily group therapy. Client stated that she would attend if she was feeling well.
--- NOTE | 2017-02-28 18:38 | NUR ---
END OF SHIFT NOTE Patient has been in bed sleeping most of the day. Vital signs have been stable. Blood pressure has been low but not symptomatic. Patient is on 3L O2 via nasal Cannula for O2 <95%. Last COWS 4. Patient did not receive any PRN medications. Patient is on antibiotic Clindamycin for a tooth ache, tolerated well. Patient has an IV to her right hand hep-locked. Patient is on a 3 day Subutex taper, 1500 dose was held today due to patient being drowsy; Dr. Stephenson aware. Patient arouses when startled, respirations are even and unlabored. All safety measures in place, call light within reach, bed locked and in lowest position. All needs have been met. Will continue to monitor until endorsed to oncoming night nurse.
--- NOTE | 2017-02-28 18:40 | NUR ---
START OF SHIFT NOTE: Patient endorsed by day shift nurse. Report received. Patient is a 26 years old female admitted to [facility] on 02/26/17 under the care of Dr. Stephenson for opiate and methamphetamine dependence, continue 5 day Subutex taper since 02/26/17. Patient tolerated well. Patient reports allergies to SULFA, is on Regular diet, is on Full Code, placed on Fall and Seizure Precautions. Past Medical History: Seizures History (2010, 2012), anxiety and depression disorders, substance abuse, tobacco dependence. History of Substance Use: Heroin IV "0.5 grams every day since 2016. Last used 0.5 grams 02/25/17". She has used "heroin for 11 years". Methamphetamine IV "0.5 grams every day since 2016. Last used 0.5 grams on 02/25/17". She has used methamphetamine for 9 years. Patient smokes "10 cigarettes every day". Treatment History: "[facility] 08/2016 for 2 months. [facility] 11/2016, 07/2016. COWS 4: c/o anxiety, mild body aches, sweating, and tremors that can be felt. Patient denies suicidal and homicidal ideation. Respirations are even and unlabored, all lung sounds clear bilaterally. Bowel Sounds active in all 4 quadrants. Last BM was "02/29/2016 afternoon". Skin is intact, warm and dry to touch. Patient's saline lock peripheral IV 20g in place patent, no redness noted. Patient is receiving O2=2L via NC as ordered, and is tolerating well. Encouraged fluids as tolerated. Encouraged to participated in groups activities. Patient remains compliant with treatment, medications, and diet regime. Safety measures on place. Call light within reach, bed in lowest position and locked, added rails up bilaterally rails up bilaterally. Will continue to monitor closely.
[2017-03-01] VITALS: BP 96/53
--- NOTE | 2017-03-01 | NUR ---
SCHEDULED ORDERED CLEOCIN PO DEFERRED Patient refused to be woken up for 0000 ordered scheduled Cleocin PO. Ordered scheduled Cleocin PO deferred d/t patient sleeping to assess while patient is awake. Safety measures on place by hospital policy: Call light within reach; Bed in lowest position and locked; side rails up x2. Will continue to monitor.
[2017-03-01] MEDS: CLINDAMYCIN HCL 300 MG CAPSULE PO SCH ×4 (01:55→17:03)
[2017-03-01] MEDS: IBUPROFEN 600 MG TABLET PO PRN (02:20)
--- NOTE | 2017-03-01 02:20 | NUR ---
PRN MOTRIN 400 MG 1 TAB PO ADMINISTRATION Patient c/o toothache and ask aid. PRN Motrin 400mg 1 tab PO administrated as ordered with full glass of water. Safety measures on place. Call light within reach, bed in lowest position and locked, added rails up bilaterally rails up bilaterally. Will continue to monitor closely.
--- NOTE | 2017-03-01 03:20 | NUR ---
RE-ASSESSMENT Patient is sleeping. Respirations even and unlabored. RR: 17. PRN Motrin PO was effective. Safety measures on place. Call light within reach, bed in lowest position and locked, added rails up bilaterally rails up bilaterally. Will continue to monitor closely.
[2017-03-01 04:00] VITALS: BP 97/55
--- NOTE | 2017-03-01 07:22 | NUR ---
END OF SHIFT NOTE: Patient endorsed to day shift nurse in stable condition. Report given. Patient is a 26 years old female admitted to [facility] on 02/26/17 under the care of Dr. Stephenson for opiate and methamphetamine dependence, continue 5 day Subutex taper since 02/26/17. Patient tolerated well. Patient reports allergies to Sulfa (Sulfonamide Antibiotics), sulfite, is on Regular diet, is on Full Code, is on Fall and Seizure Precautions. Past Medical History: Seizures History (2010, 2012), anxiety, depression, and substance abuse. Last COWS at 0400 decreased from 7 to 6. Patient presented with anxiety, nervousness, tachycardia, tremors that can be felt, sweating, restlessness, pupil size larger than normal for room light, and yawning. Patient denies suicidal and homicidal ideation. VS at 0400: VS: T: 99.3; HR: 110; BP: 136/84; O2Sat: 93 %; RR: 16; Pain Level: 0/10". Respirations are even and unlabored. Skin is intact, warm and dry to touch. Patient's saline lock peripheral IV 20g in place patent, no redness noted. Patient is receiving O2=2L via NC as ordered, and is tolerating well. Encouraged fluids as tolerated. PRN Motrin 400 mg PO administrated for toothache, and was effective . Patient remains compliant with treatment, medications, and diet regime. Patient slept 10 hours, Intake 2,801 ml, Voided x4. Safety measures on place. Call light within reach, bed in lowest position and locked, padded rails up bilaterally rails up bilaterally.
--- NOTE | 2017-03-01 07:22 | NUR ---
START OF SHIFT NOTE Received report from night nurse, 26 year old female admitted for opiate methamphetamine dependence. Pt has a PMH of MRSA of a pimple on the chin in 2014, seizure in 2010 and 2012, scoliosis, eating disorder in high school, cosmetic surgery, anxiety, and depression, track wilder on the front of her neck and a raised area on the inner right ankle which appears to be an insect bite and wilder on bilateral thighs from picking her skin while using drugs. Pt is cont with O2=2L via NC for low o2sat and appears to be tolerating well. Peripheral IV 22g on right khanna intact and in place. Pt received PRN Motrin effective per night nurse, Last COWS-6, slept for 10 hours. Currently pt is resting in her room responsive to verbal and tactile stimuli. no s/s of distress noted at this time. All safety measures in place, call light within reach. Will cont to monitor.
[2017-03-01 08:00] VITALS: BP 96/61
[2017-03-01] MEDS: LACTOBACILLUS RHAMNOSUS GG 1 EACH CAPSULE PO SCH ×2 (08:40→20:23)
[2017-03-01] MEDS: CHOLECALCIFEROL 1,000 UNIT TABLET PO SCH (08:40)
[2017-03-01] MEDS: GABAPENTIN 300 MG CAPSULE PO SCH ×3 (08:40→20:23)
[2017-03-01] MEDS: MULTIVITAMINS,THERAPEUTIC TABLET PO SCH (08:40)
[2017-03-01] MEDS ORDERED: BUPRENORPHINE HCL 2 MG TAB.SUBL SL SCH (09:00)
[2017-03-01 12:00] VITALS: BP 90/55
[2017-03-01] MEDS ORDERED: METH-406 PO (14:37)
[2017-03-01] MEDS ORDERED: DICY20TA28 PO (14:37)
[2017-03-01] MEDS ORDERED: GABA-534 PO (14:37)
[2017-03-01] MEDS ORDERED: IBUP-1955 PO (14:37)
[2017-03-01] MEDS ORDERED: HYDR-3895 PO (14:37)
[2017-03-01] MEDS ORDERED: DIPH50CA37 PO (14:37)
[2017-03-01 15:32] LABS: *AMPHETAMINE, URINE POSITIVE (NEGATIVE); *BARBITURATE, URINE NEGATIVE (NEGATIVE); *CANNABINOID, URINE NEGATIVE (NEGATIVE); *COCCAINE, URINE NEGATIVE (NEGATIVE); *OPIATE, URINE POSITIVE (NEGATIVE); *PHENCYCLIDINE SCREEN,URINE NEGATIVE (NEGATIVE)
[2017-03-01 16:00] VITALS: BP 91/56
[2017-03-01] MEDS ORDERED: IV D5 1/2 NS 1000 ML 1,000 ML IV PRN (16:45)
--- NOTE | 2017-03-01 17:03 | NUR ---
PRN D5 1/2 NS PRN D5, 1/2 NS @ 125Ml/HR running via peripheral line @ R F/A, dressing intact. Pt tolerating well, will continue to monitor.
--- NOTE | 2017-03-01 19:00 | NUR ---
END OF SHIFT NOTE Patient finished Subutex taper this shift. Patient's blood pressure was running low during shift and Dr. Stephenson ordered IV fluids. Patient tolerating well. Patient has IV fluids in right forearm. She rested most of shift in her room and did not attend groups or activities. EKG ordered and completed per Dr. Stephenson with no new orders at this time. Patient on 2 L oxygen by nasal cannula with oxygen WNL. Last COWS 5. Fall and seizure precautions observed at all times, all needs met and rendered, Patient endorsed to conveyor feeder nurse in stable condition.
--- NOTE | 2017-03-01 19:00 | NUR ---
START OF SHIFT NOTE: Patient endorsed by day shift nurse. Report received. Patient is a 26 years old female admitted to [facility] on 02/26/17 under the care of Dr. Stephenson for opiate and methamphetamine dependence, continue 5 day Subutex taper since 02/26/17. Patient tolerated well. Patient reports allergies to SULFA, is on Regular diet, is on Full Code, placed on Fall and Seizure Precautions. Past Medical History: Seizures History (2010, 2012), anxiety and depression disorders, substance abuse, tobacco dependence. History of Substance Use: Heroin IV "0.5 grams every day since 2016. Last used 0.5 grams 02/25/17". She has used "heroin for 11 years". Methamphetamine IV "0.5 grams every day since 2016. Last used 0.5 grams on 02/25/17". She has used methamphetamine for 9 years. Patient smokes "10 cigarettes every day". Treatment History: "[facility] 08/2016 for 2 months. [facility] 11/2016, 07/2016. Upon endorsement, patient in the bed. Patient is alert and oriented x4. COWS 7: c/o anxiety, restlessness, tremors that can be felt, c/o mild body aches, and sweating. Patient denies suicidal and homicidal ideation. VSWNL. Respirations are even and unlabored, all lung sounds clear bilaterally. Bowel Sounds active in all 4 quadrants. Last BM was "03/01/2016 at 1800". Skin is intact, warm and dry to touch. Patient's ordered IVF started running at 1705 : 125 cc/hr. IV site at right forearm patent, no redness noted. Patient is receiving O2=2L via NC as ordered, and is tolerating well. Doctor Raz Stephenson MD aware for patient condition. Encouraged fluids as tolerated. Patient remains compliant with treatment, medications, and diet regime. Safety measures on place. Call light within reach, bed in lowest position and locked, added rails up bilaterally rails up bilaterally. Will continue to monitor closely.
[2017-03-01 20:00] VITALS: BP 97/65
[2017-03-01 20:05] LABS: HEMATOCRIT 43.4 % (37-47); HEMOGLOBIN 14.4 G/DL (12.0-16.0); MEAN CORPUSCULAR HEMOGLOBIN 25.2 UUG (27.0-31.0); MEAN CORPUSCULAR HGB CONC 33 g/dL (32.0-37.0); MEAN CORPUSCULAR VOLUME 76.1 FL (81.0-99.0); RED BLOOD CELL COUNT(AUTO) 5.71 MIL/UL (4.2-5.4); WHITE BLOOD COUNT (AUTO) 11.9 K/UL (4.0-11.2)
[2017-03-01 20:23] LABS: CREATININE 0.9 mg/dL (0.6-1.3); MAGNESIUM 1.9 mg/dL (1.8-2.4)
[2017-03-01 21:21] LABS: PLATELET COUNT (AUTO) 207 K/UL (150-450)
[2017-03-01 21:31] LABS: BAND % (MANUAL) 8 % (0-10); EOSINOPHILS % (MANUAL) 3 % (0-8); LYMPHOCYTES % (MANUAL) 33 % (20-40); MONOCYTES % (MANUAL) 6 % (2-10); NEUTROPHILS % (MANUAL) 50 % (42-75)
[2017-03-01] MEDS: CLONIDINE HCL 0.1 MG TABLET PO PRN (23:19)
[2017-03-01] MEDS: diphenhydrAMINE 50 MG CAPSULE PO PRN (23:19)
--- NOTE | 2017-03-01 23:19 | NUR ---
PRN BENADRYL 50 MG 1 TAB PO AND PRN CATAPRES 0.1 MG PO ADMINISTRATION Patient c/o insomnia and increased anxiety, and ask aid. Patient 's assessed. COWS 8. Patient presented with anxiety, restlessness, tremors that can be felt, c/o mild body aches, sweating, and yawning. Patient denies suicidal and homicidal ideation. VSWNL. PRN Benadryl 50mg 1 tab PO and PRN Catapres 0.1 mg 1 tab PO administrated as ordered with full glass of water. Safety measures on place. Call light within reach, bed in lowest position and locked, added rails up bilaterally rails up bilaterally. Will continue to monitor closely. Addendum: 03/02/17 at 0217 by LEOPOLDO HORTA RN PRN Benadryl 50 mg 1 capsule
[2017-03-02] VITALS (7 sets, daily range): BP systolic 81–126; BP diastolic 47–84
[2017-03-02] MEDS: CLINDAMYCIN HCL 300 MG CAPSULE PO SCH ×4 (00:04→18:37)
--- NOTE | 2017-03-02 00:19 | NUR ---
RE-ASSESSMENT Patient is sleeping. Respirations even and unlabored. RR: 16. PRN Benadryl PO and PRN Catapres were effective. Safety measures on place. Call light within reach, bed in lowest position and locked, padded rails up bilaterally rails up bilaterally. Will continue to monitor closely.
--- NOTE | 2017-03-02 07:05 | NUR ---
Start of Shift Endorsement received from nightshift nurse. Pt is a 26 y/o female admitted for Heroin and Meth dependence. Pt has been placed on a 5 day Subutex taper. PT has completed the Subutex taper. She will be under observation today and all symptoms will be treated by PRN medications. PT received fluids during the night for hypotension. Pt is also on PRN 02 2L for SpO2 below 93%. Pt received PRN Trazodone and Vistaril. Pt reports sleeping 10 hours during the night. Pt is moderately withdrawing at this time AEB COWS 6. Full Code. PT is alert and oriented x4. Pt is in STABLE condition at this time. Remains compliant with medication and diet regimen. All needs have been met, All safety measures in place per hospital policy. Bed in lowest position, side rails up x2, call-light within reach. Will continue to monitor
--- NOTE | 2017-03-02 07:12 | NUR ---
END OF SHIFT NOTE: Patient endorsed to day shift nurse in stable condition. Report given. Patient is a 26 years old female admitted to [facility] on 02/26/17 under the care of Dr. Stephenson for opiate and methamphetamine dependence, completed a buprenorphine taper, which was tolerated and completed without adverse effects. Patient reports allergies to Sulfa (Sulfonamide Antibiotics), sulfite, is on Regular diet, is on Full Code, is on Fall and Seizure Precautions. Patient is ambulatory without assistance, cooperative. Past Medical History: Seizures History (2010, 2012), anxiety, depression, and substance abuse. Last assessment done at 0400. COWS decreased from 8 to 6. Patient presented with anxiety, nervousness, tachycardia, tremors that can be felt, sweating, restlessness, pupil size larger than normal for room light, fatigue, and yawning. Patient denies suicidal and homicidal ideation. VS at 0400: VS: T: 98.2; HR: 88; BP: 94/60; O2Sat: 96%; RR: 17; Pain Level: 0/10". Respirations are even and unlabored. Patient is receiving O2=2L via NC as ordered for hypoxemia, and tolerating well. Patient denies SOB and chest pain. Skin is intact, warm and dry to touch. 1,000 IVF with D5-1/2NS @ 125 ml/hr infused as ordered. Right forearm IV site patent, no redness noted. Patient's saline lock peripheral IV 20g in place. Encouraged fluids as tolerated. PRN Benadryl 50 mg 1 capsule PO and PRN Catapres 0.1 mg 1 tab PO administrated for insomnia and anxiety were effective. Patient remains compliant with treatment, medications, and diet regime. Patient slept 10 hours, Intake 1,850 ml, Voided x1. Safety measures on place. Call light within reach, bed in lowest position and locked, padded rails up bilaterally rails up bilaterally.
[2017-03-02] MEDS: LACTOBACILLUS RHAMNOSUS GG 1 EACH CAPSULE PO SCH ×2 (09:09→21:36)
[2017-03-02] MEDS: CHOLECALCIFEROL 1,000 UNIT TABLET PO SCH (09:09)
[2017-03-02] MEDS: MULTIVITAMINS,THERAPEUTIC TABLET PO SCH (09:09)
[2017-03-02] MEDS: GABAPENTIN 300 MG CAPSULE PO SCH ×3 (09:09→21:36)
--- NOTE | 2017-03-02 13:10 | NUR ---
Therapist prompted client about group times. Client reported she is too tired.
[2017-03-02 17:38] LABS: *AMPHETAMINE, URINE NEGATIVE (NEGATIVE); *BARBITURATE, URINE NEGATIVE (NEGATIVE); *CANNABINOID, URINE NEGATIVE (NEGATIVE); *COCCAINE, URINE NEGATIVE (NEGATIVE); *OPIATE, URINE NEGATIVE (NEGATIVE); *PHENCYCLIDINE SCREEN,URINE NEGATIVE (NEGATIVE)
--- NOTE | 2017-03-02 19:02 | NUR ---
End of Shift Endorsement given to nightshift nurse. Pt is a 26 y/o female admitted for Heroin and Meth dependence. Pt has been placed on a 5 day Subutex taper. PT has completed the Subutex taper. Pt did not receive any PRN medications. Pt has been scheduled to be discharge on 03/03/17. Discharge education has been completed. IV has been discontinued per Dr. Stephenson. Pt is also on PRN 02 2L for SpO2 below 93%. Pt spent the day in her room. PT did not participate in groups or activities. Encouraged pt to participate in groups and activities. Pt is moderately withdrawing at this time AEB COWS 1. Full Code. PT is alert and oriented x4. Pt is in STABLE condition at this time. Remains compliant with medication and diet regimen. All needs have been met, All safety measures in place per hospital policy. Bed in lowest position, side rails up x2, call-light within reach. Will continue to monitor
--- NOTE | 2017-03-02 19:12 | NUR ---
Start of shift note Received report from day shift nurse. Pt is a 26 yo female, A+Ox4, presenting to [facility] for Opiate/Meth dependence. Pt has Allergies to Sulfa and Sulfite, is on Full Code status, and on Regular diet. Pt is on Fall and Seizure precautions. Pt has HX of depression. Pt has completed 4 day Subutex taper, tolerated well, and is due for discharge tomorrow. No s/s of distress noted at this time. Respirations even and unlabored. Will continue to monitor.
[2017-03-02] MEDS: diphenhydrAMINE 50 MG CAPSULE PO PRN (21:47)
--- NOTE | 2017-03-02 21:47 | NUR ---
PRN Benadryl Pt c/o inability to sleep and requested for PRN Benadryl. Medication given and tolerated well. Will reassess within 1 HR. Will continue to monitor.
--- NOTE | 2017-03-02 22:40 | NUR ---
PRN Benadryl Reassessment Medication effective. Pt is resting well in bed. No s/s of ASE/distress noted at this time. Respirations even and unlabored. Will continue to monitor.
[2017-03-03 00:14] VITALS: BP 94/57
[2017-03-03] MEDS: CLINDAMYCIN HCL 300 MG CAPSULE PO SCH ×2 (00:15→06:41)
[2017-03-03 04:41] VITALS: BP 97/58
--- NOTE | 2017-03-03 06:59 | NUR ---
End of shift note Pt is a 26 yo female, A+Ox4, presenting to [facility] for Opiate/Meth dependence. Pt has Allergies to Sulfa and Sulfite, is on Full Code status, and on Regular diet. Pt is on Fall and Seizure precautions. Pt has HX of depression. Pt has completed 4 day Subutex taper, tolerated well, and is due for discharge today. Pt was given PRN Minl @1542. Pt slept for a total of 8 HRS. Last CIWA: 1 @0400. No s/s of distress noted at this time. Respirations even and unlabored. Will endorse to day shift nurse.
--- NOTE | 2017-03-03 07:25 | NUR ---
Start of shift note SBAR report rcv'd. Pt was admitted for opiate dependence. Pt has a PMHx of depression and seizures. During the course of the pt's hospital stay, her oxygen levels have been dropping per report. Pt has an incentive spirometer at bedside. Pt Spo2 noted to be 94% on RA at this time. Pt denies any SOB. Pt encouraged to ambulated and use IS. Pt has no further complaints at this time. Pt states that she feels ready for discharge. Will continue to monitor pt.
[2017-03-03 08:00] VITALS: BP 90/54
[2017-03-03] MEDS: GABAPENTIN 300 MG CAPSULE PO SCH (08:31)
[2017-03-03] MEDS: MULTIVITAMINS,THERAPEUTIC TABLET PO SCH (08:31)
[2017-03-03] MEDS: CHOLECALCIFEROL 1,000 UNIT TABLET PO SCH (08:31)
[2017-03-03] MEDS: LACTOBACILLUS RHAMNOSUS GG 1 EACH CAPSULE PO SCH (08:31)
--- NOTE | 2017-03-03 09:52 | NUR ---
Discharge note Pt was admitted for opiate dependence. Pt has a recent COWS of 1, LBM 03/02/17, VS are WNL for the pt, pt has no complaints of pain/discomfort at this time. Denies SI/HI. Pt states that she feels ready for discharge, verbalized her understanding of the discharge instructions, stated she will follow up with a PCP within 1-2 weeks and will continue to use her IS and ambulate frequently. Pt prescriptions, medications, discharge packet and all belongings returned to pt. Pt ID band removed, pt ambulated off of unit with [facility], left facility via [facility].
== END 2017-03-03 09:52 | disposition other institution (70) | DRG 895 ==
LOC: SRC 00:24
PROVIDERS: ADMIT Internal Medicine; ATTEND Internal Medicine
PROC: HZ2ZZZZ Detoxification Services for Substance Abuse Treatment (ICD-10-PCS; principal; 2017-02-26)
PROC: HZ31ZZZ Individual Counseling for Substance Abuse Treatment, Behavioral (ICD-10-PCS; 2017-02-27)
DX: F11.23 Opioid dependence with withdrawal (principal); L03.221 Cellulitis of neck; J98.11 Atelectasis; S11.93XS Puncture wound without foreign body of unspecified part of neck, sequela; X78.8XXS Intentional self-harm by other sharp object, sequela; F41.1 Generalized anxiety disorder; Z83.3 Family history of diabetes mellitus; F17.210 Nicotine dependence, cigarettes, uncomplicated; K04.7 Periapical abscess without sinus; Z59.1 Inadequate housing; E83.42 Hypomagnesemia; F32.9 Major depressive disorder, single episode, unspecified; F14.10 Cocaine abuse, uncomplicated; F15.23 Other stimulant dependence with withdrawal; Z86.59 Personal history of other mental and behavioral disorders; I95.1 Orthostatic hypotension; E86.0 Dehydration; R09.02 Hypoxemia
CPT/HCPCS: 36415; 70030-TC; 71010; 71275; 80307; 80324; 80353; 80361; 83690; 83735; 84443; 84703; 85025; 86580; 86592; 86705; 86803; 87340; 87806; 93005; 97161; A9150; G0480; J1650; J1885; J3490; J7050; Q0163; Q9967

== ENCOUNTER 2017-02-26 22:36 | Outpatient (CLI) | payer BC, OTHER | END 2017-02-26 23:59 | disposition left against medical advice (07) | LOC: RAD 22:36 | PROVIDERS: ATTEND Internal Medicine | DX: Z75.3 Unavailability and inaccessibility of health-care facilities (principal) ==